=== PATIENT | female | born 1980 | race Caucasian/White ===

== ENCOUNTER 2017-02-25 01:00 | Emergency (ER) | payer MEDICAID ==
[2017-02-25 01:35] VITALS: BP 140/85
== END 2017-02-25 01:35 | disposition home or self-care (01) ==
LOC: ED 01:00
DX: J02.9 Acute pharyngitis, unspecified (principal)

== ENCOUNTER 2020-01-30 15:36 | Emergency (ER) | payer MEDICAID ==
[~2020-01-30] VITALS: Ht 162.6 cm; Wt 64.4 kg
[2020-01-30 15:51] VITALS: Ht 162.6 cm; Wt 64.4 kg
[2020-01-30 19:50] VITALS: BP 99/50
== END 2020-01-30 19:50 | disposition home or self-care (01) ==
LOC: ED 15:36
DX: G43.909 Migraine, unspecified, not intractable, without status migrainosus (principal); R11.2 Nausea with vomiting, unspecified
CPT/HCPCS: J0780; J1885